=== PATIENT | female | born 1995 | race African-American/Black ===

== ENCOUNTER 2016-12-01 13:07 | Emergency (ER) | payer OTHER, MEDICAID ==
[~2016-12-01 13:07] MED LIST: PREN29TA PO
[2016-12-01] MEDS ORDERED: CYCLOBENZAPRINE HCL 10 MG TAB PO ONE (13:15)
[2016-12-01] MEDS ORDERED: IBUPROFEN 600 MG TAB PO ONE (13:15)
[2016-12-01 13:34] VITALS: BP 112/57; PULSE 67; RESP 18; O2SAT 99
[2016-12-01] MEDS ORDERED: CYCL1TAB29 PO (13:44)
[2016-12-01] MEDS ORDERED: MOTR200T4 PO (13:44)
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
[2016-12-01 14:15] VITALS: BP 125/67; TEMP 98.2
== END 2016-12-01 14:00 | disposition home or self-care (01) ==
LOC: NEPC 13:07
DX: M62.838 Other muscle spasm (principal); R51 Headache; M25.511 Pain in right shoulder; V47.5XXA Car driver injured in collision with fixed or stationary object in traffic accident, initial encounter
CPT/HCPCS: 99284

== ENCOUNTER 2017-05-03 11:44 | Emergency (ER) | payer MEDICAID ==
[~2017-05-03] VITALS: Ht 165.1 cm; Wt 60.0 kg
[~2017-05-03 11:44] MED LIST changes: +CYCL1TAB29 PO; +MOTR200T4 PO
[2017-05-03 11:45] VITALS: BP 119/64; PULSE 75; RESP 16; TEMP 99.2; O2SAT 98
--- NOTE | 2017-05-03 11:59 | PD ---
Physical Exam Time Seen by Provider: 11:58 Narrative 21 y/o female dysuria for 2 days. She did notice some blood in her urine stream , denies vaginal bleeding/discharge. Vital signs reviewed. Seen at triage desk. Awaiting bed placement. Data Data Last Documented VS Vital Signs Date Time Temp Pulse Resp B/P Pulse Ox O2 Delivery O2 Flow Rate FiO2 05/03/17 11:45 99.2 75 16 119/64 98 Room Air [facility] Medical Record Reviewed: Yes Supervised Visit with ERUM: Ramos Almonte May 03, 2017 11:59
[2017-05-03] MEDS ORDERED: PHEN0.4T PO (12:13)
[2017-05-03] MEDS ORDERED: CEPH-460 PO (12:13)
--- NOTE | 2017-05-03 12:16 | PD ---
HPI Chief Complaint: Complaint Time Seen by Provider: 12:10 Travel History International Travel<30 days: No Contact w/Intl Traveler<30days: No Traveled to known affect area: No History of Present Illness HPI 21-year-old female presents to the emergency Department with complaint of dysuria, urgency, frequency, hesitancy, and hematuria since yesterday. Denies abdominal pain, nausea, vomiting, fever. Denies abnormal vaginal discharge, odor, itch. Has taken [id number] IZO and Tylenol for symptom management. No known aggravating factors. Last menstrual period April 11. Reports being homosexual and denies risk of . Has no other medical complaints. No known allergies. No other modifying factors or associated signs and symptoms. PFSH Past Medical History Reproductive: Yes (irregular menstruation ) ?: Not Social History Alcohol Use: No (pt denies) Tobacco Use: No Substance Use: No Allergies-Medications (Allergen,Severity, Reaction): Coded Allergies: No Known Allergies (Unverified , 07/10/16) Reported Meds & Prescriptions Reported Meds & Active Scripts Active Pyridium (Phenazopyridine HCl) 100 Mg Tab 100 Mg PO Q8H PRN 3 Days Keflex (Cephalexin) 500 Mg Cap 500 Mg PO Q12H 7 Days Flexeril (Cyclobenzaprine HCl) 10 Mg Tab 10 Mg PO TID Motrin Ib (Ibuprofen) 200 Mg Tab 200 Mg PO Q4H PRN Plus Iron 29-1 mg ( Vit-Iron Carbonyl) 1 Tab Tab 1 Tab PO DAILY Review of Systems Except as stated in HPI: all other systems reviewed are Neg Physical Exam Narrative GENERAL: Well-nourished, well-developed female patient, in no acute distress; afebrile, nontoxic-appearing SKIN: Warm and dry. No rash. HEAD: Atraumatic. Normocephalic. EYES: Pupils equal and round. No scleral icterus. No injection or drainage. ENT: Mucosa pink and moist. NECK: Trachea midline. CARDIOVASCULAR: Regular rate. RESPIRATORY: No accessory muscle use. GASTROINTESTINAL: Abdomen soft, non-tender, nondistended. Hepatic and splenic margins not palpable. Bowel sounds are active 4 quadrants. Tenderness over the bladder; nondistended. MUSCULOSKELETAL: No obvious deformities. No clubbing. No cyanosis. No edema. BACK: Right CVA tenderness NEUROLOGICAL: Awake and alert. Oriented 3. No obvious cranial nerve deficits. Motor grossly within normal limits. Normal speech. Moves all extremities. 5/5 strength to all extremities. PSYCHIATRIC: Appropriate mood and affect; insight and judgment normal. Data Data Last Documented VS Vital Signs Date Time Temp Pulse Resp B/P Pulse Ox O2 Delivery O2 Flow Rate FiO2 05/03/17 11:45 99.2 75 16 119/64 98 Room Air Orders Urinalysis - C+S If Indicated (05/03/17 12:00) Urine Culture (05/03/17 12:00) Labs Laboratory Tests Test 05/03/17 12:00 Urine Color YELLOW Urine Turbidity CLOUDY Urine pH 6.0 Urine Specific [place] 1.023 Urine Protein 300 mg/dL Urine Glucose (UA) NEG mg/dL Urine Ketones NEG mg/dL Urine Occult Blood LARGE Urine Nitrite NEG Urine Bilirubin NEG Urine Urobilinogen LESS THAN 2.0 MG/DL Urine Leukocyte Esterase LARGE Urine RBC /hpf Urine WBC /hpf Urine WBC Clumps MANY Urine Squamous Epithelial 23 /hpf Cells Urine Bacteria FEW /hpf Urine Mucus FEW /lpf Microscopic Urinalysis Comment CULTURE INDICATED MDM Medical Decision Making Medical Screen Exam Complete: Yes Emergency Medical Condition: Yes Medical Record Reviewed: Yes Differential Diagnosis UTI, cystitis, pyelonephritis Narrative Course 21-year-old female with urinary symptoms since yesterday. Patient has right- sided CVA and bladder tenderness on exam. Patient is afebrile and nontoxic- appearing. She denies fever, vomiting. Denies vaginal symptoms. Last menstrual period April 11. Patient reports being in a homosexual relationship, denies risk of and declines test. Urinalysis ordered. 1304: Urinalysis was signs of infection. Keflex and Pyridium prescribed for home. Instructed patient to follow up with primary care provider. Patient verbalizes understanding and agreement with treatment plan. Patient is medically cleared and stable for discharge. Discussed reasons to return to the emergency department. Patient agrees with treatment plan. The patients vital signs are stable and the patient is stable for outpatient follow-up and treatment. Patient discharged home, stable and in no acute distress. Diagnosis Primary Impression: Urinary tract infection Qualified Code: N39.0 - Urinary tract infection with hematuria, site unspecified Referrals: [facility] Primary Care Physician Patient Instructions: General Instructions, Urinary Tract Infection in Women ( ED) Departure Forms: Tests/Procedures, Work Release Enter return to work date: May 04, 2017 Additional Instructions: Take antibiotics as prescribed and complete full course Take Pyridium for bladder spasms: Pyridium will turn your urine bright orange Drink plenty of fluids Maintain good personal hygiene Follow-up with primary care provider Return to the emergency department immediately with worsening of symptoms Med/Other Pt SpecificInfo: Prescription(s) given Scripts Phenazopyridine (Pyridium)100 Mg [id number] Mg PO Q8H PRN (DYSURIA) 3 Days Ref 0 Prov:Michelle Rouse 05/03/17 Cephalexin (Keflex)500 Mg [id number] Mg PO Q12H 7 Days Ref 0 Prov:Michelle Rouse 05/03/17 Disposition: 01 DISCHARGE HOME Condition: Stable Michelle Rouse May 03, 2017 12:16
[2017-05-03 13:00] LABS: BACTERIA, URINE FEW /hpf; BLOOD, URINE LARGE (NEG); COMMENT (UR) CULTURE INDICATED; CULTURE IF INDICATED CULTURE INDICATED; GLUCOSE,URINE NEG (NEG); KETONE, URINE NEG (NEG); MUCUS URINE FEW /lpf (OCC); NITRITE,URINE NEG (NEG); SQUAMOUS EPITHELIAL CELL URINE 23 /hpf (0-5)
[2017-05-03 13:01] LABS: URINE COLOR YELLOW (YELLW/STRAW)
== END 2017-05-03 13:23 | disposition home or self-care (01) ==
LOC: NEPK 11:44
DX: N39.0 Urinary tract infection, site not specified (principal); B96.20 Unspecified Escherichia coli [E. coli] as the cause of diseases classified elsewhere; I69.951 Hemiplegia and hemiparesis following unspecified cerebrovascular disease affecting right dominant side; Z79.899 Other long term (current) drug therapy
CPT/HCPCS: 81001; 87077; 87086; 87186; 99284